=== PATIENT | male | born 2000 | race Caucasian/White ===

== ENCOUNTER 2018-05-01 14:00 | Outpatient (CLI) | payer BC, OTHER ==
[2018-05-02 13:25] LABS: HEPATITIS C ANTIBODY NON-REACTIVE (NON-REACTIVE)
[2018-05-02 14:16] LABS: HIV AG/AB 4TH GEN NON-REACTIVE (NON-REACTIVE)
== END 2018-05-01 14:01 | disposition home or self-care (01) ==
LOC: LAB.WCP 14:00
PROVIDERS: ATTEND Family Medicine
DX: Z11.3 Encounter for screening for infections with a predominantly sexual mode of transmission (principal)
CPT/HCPCS: 36415; 81599; 86592; 86803; 87389

== ENCOUNTER 2018-10-25 14:32 | Outpatient (CLI) | payer OTHER, BC ==
--- NOTE | 2018-10-25 15:34 | XRAY Report ---
Reason: LOWER BACK PAIN Procedure Date: 10/25/2018 Accession Number: [id number] / [id number] Procedure: WCP - Lumbar Spine 2 View CPT Code: FULL RESULT: EXAM: LUMBOSACRAL SPINE RADIOGRAPHY EXAM DATE: 10/25/2018 02:46 PM. CLINICAL HISTORY: Lower back pain. COMPARISONS: None. TECHNIQUE: 2 views. FINDINGS: Alignment: Dextroconvex mild lumbar scoliosis centered about L2. No listhesis. Bones: Five [id number] lumbar vertebral bodies are present. No fractures or bone lesions. Disks: Normal. Disk heights are maintained. Facets: No degenerative changes. Sacroiliac Joints: Unremarkable. Soft Tissues: Normal. The visualized bowel gas pattern is normal. IMPRESSION: Dextroconvex lumbar scoliosis as described. [facility]
== END 2018-10-25 14:33 | disposition home or self-care (01) ==
LOC: DI.WCP 14:32
PROVIDERS: ATTEND Family Medicine
DX: M41.86 Other forms of scoliosis, lumbar region (principal); M54.5 Low back pain
CPT/HCPCS: 72100

== ENCOUNTER 2019-01-10 08:00 | Outpatient (CLI) | payer BC, OTHER ==
[2019-01-10 13:25] LABS: BASOPHILS # (AUTO) 0.1 10^3/uL (0.0-0.1); EOSINOPHILS # (AUTO) 0.3 10^3/uL (0.0-0.7); HGB - HEMOGLOBIN 13.6 g/dL (14.0-18.0); LYMPHOCYTES # (AUTO) 1.7 10^3/uL (1.5-3.5); LYMPHOCYTES % (AUTO) 31.6 %; MEAN CORPUSCULAR HEMOGLOBIN 30.4 pg (27.0-31.0); MEAN CORPUSCULAR HGB CONC 33.7 g/dL (32.0-36.0); MEAN CORPUSCULAR VOLUME 90.2 fL (80.0-94.0); MEAN PLATELET VOLUME 8.6 fL (7.4-11.4); MONOCYTES # (AUTO) 0.5 10^3/uL (0.0-1.0); MONOCYTES % (AUTO) 9.5 %; NEUTROPHILS # (AUTO) 2.8 10^3/uL (1.5-6.6); NEUTROPHILS % (AUTO) 51.9 %; PLT - PLATELET COUNT 246 10^3/uL (130-450); RED BLOOD COUNT 4.47 10^6/uL (4.70-6.10); RED CELL DISTRIBUTION WIDTH 12.7 % (12.0-15.0); WHITE BLOOD COUNT 5.4 x10^3/uL (4.8-10.8)
[2019-01-10 13:46] LABS: ALBUMIN 4.3 g/dL (3.2-5.5); ALBUMIN/GLOBULIN RATIO 1.4 (1.0-2.2); ALKALINE PHOSPHATASE 63 IU/L (42-121); ALT ALANINE AMINOTRANSFERASE 18 IU/L (10-60); AST ASPARTATE AMINOTRANSFERASE 17 IU/L (10-42); BILIRUBIN,TOTAL 0.9 mg/dL (0.2-1.0); BUN - BLOOD UREA NITROGEN 21 mg/dL (6-20); CALCIUM 9.2 mg/dL (8.5-10.3); CARBON DIOXIDE - CO2 26 mmol/L (21-32); CHLORIDE 104 mmol/L (101-111); CHOL/HDL RATIO 3.6 (<5.0); CHOLESTEROL 102 mg/dL; CREATININE 1.1 mg/dL (0.6-1.2); GFR - MDRD 85 (>89); GLUCOSE 89 mg/dL (70-100); HDL CHOLESTEROL 28 mg/dL; LDL CHOLESTEROL,CALCULATED 65 mg/dL; LDL/HDL RATIO 2.3 (<3.6); SODIUM 140 mmol/L (135-145); TOTAL PROTEIN 7.3 g/dL (6.7-8.2); VLDL CHOLESTEROL 9 mg/dL
[2019-01-10 14:34] LABS: HB2 TOTAL 14.8 g/dL; HEMOGLOBIN A1C 0.49 g/dL; HEMOGLOBIN A1C % 5.2 % (4.6-6.2)
== END 2019-01-10 23:59 | disposition home or self-care (01) ==
LOC: LAB.WCP 08:00
PROVIDERS: ATTEND Family Medicine
DX: R25.1 Tremor, unspecified (principal)
CPT/HCPCS: 36415; 80053; 80061; 83036; 83721; 84443; 85025

== ENCOUNTER 2019-01-22 08:44 | Outpatient (CLI) | payer BC, OTHER ==
[2019-01-22 12:47] LABS: ABSOLUTE RETICS # AUTO 0.027 10^6/uL (0.020-0.110); MEAN RETIC VALUE 109.8; RED BLOOD COUNT 4.85 10^6/uL (4.70-6.10)
[2019-01-22 13:12] LABS: % IRON SATURATION 12 % (20-50); IRON 39 ug/dL (45-182); TOTAL IRON BINDING CAPACITY 328 ug/dL (250-450); TRANSFERRIN 234 mg/dL (180-329)
[2019-01-22 13:18] LABS: FERRITIN 83.5 ng/mL (23.9-336.2)
[2019-01-22 13:21] LABS: FOLATE 14.56 ng/mL (5.90 - >24.8)
== END 2019-01-22 08:45 | disposition home or self-care (01) ==
LOC: LAB.WCP 08:44
PROVIDERS: ATTEND Family Medicine
DX: D64.9 Anemia, unspecified (principal)
CPT/HCPCS: 36415; 82607; 82728; 82746; 83540; 84466; 85044

== ENCOUNTER 2019-01-27 11:09 | Outpatient (CLI) | payer BC ==
[2019-01-27 11:58] LABS: H. PYLORIS ANTIGEN STL NEGATIVE (Negative)
== END 2019-01-27 23:59 | disposition home or self-care (01) ==
LOC: LAB.R 11:09
PROVIDERS: ATTEND Family Medicine
DX: D64.9 Anemia, unspecified (principal)
CPT/HCPCS: 82274; 87338

== ENCOUNTER 2020-04-14 18:13 | Outpatient (CLI) | payer BC | END 2020-04-14 18:14 | disposition home or self-care (01) | LOC: COV 18:13 | PROVIDERS: ATTEND Family Medicine | DX: Z20.828 Contact with and (suspected) exposure to other viral communicable diseases (principal) ==